=== PATIENT | female | born 1970 | race Caucasian/White ===

== ENCOUNTER 2017-06-28 19:45 | Emergency (ER) | payer BC, OTHER ==
[~2017-06-28] VITALS: Ht 154.9 cm; Wt 84.8 kg
[~2017-06-28 19:45] MED LIST: BACTRIM DS 8001 TA1 PO; BUPROPION HYDR150 M1 PO; BUPROPION HYDR150 M4 PO; CELEXA20 MG PO; CLARITIN10 MG PO; HYDR12.5C PO; HYDROXYZINE PAM50 MG PO; PERCOCET 325 MG1 TA2 PO; PROPRANOLOL ER80 MG PO; PYRIDIUM200 MG PO; VISTARIL25 M1 PO; VITAMIN D50000 IU PO; WELLBUTRIN100 MG PO
[2017-06-28] MEDS ORDERED: LAMICTAL100 MG PO (19:59)
[2017-06-28] MEDS ORDERED: HYDR25T PO (20:00)
[2017-06-28] MEDS ORDERED: TIROSINT150 MCG PO (20:01)
[2017-06-28] MEDS ORDERED: VITAMIN D50000 UNIT PO (20:01)
[2017-06-28] MEDS ORDERED: VITAMIN B121000 MC1 PO (20:01)
[2017-06-28] MEDS ORDERED: MTX SUPPORT TA1 EACH PO (20:02)
== END 2017-06-28 21:31 | disposition home or self-care (01) ==
LOC: ED 19:45
DX: M72.2 Plantar fascial fibromatosis (principal); R03.0 Elevated blood-pressure reading, without diagnosis of hypertension; Z88.6 Allergy status to analgesic agent; Z91.040 Latex allergy status

== ENCOUNTER 2017-07-17 17:59 | Inpatient (IN) | payer BC, OTHER ==
[~2017-07-17] VITALS: Ht 154.9 cm; Wt 101.7 kg
--- NOTE | ~2017-07-17 | CON ---
[place], [place] REPORT OF CONSULTATION NAME: RAMEZ CHAUDHARI UNIT #: [id number] ROOM: 426 DOCTOR: JOSHUA MEADOWS MD BIRTHDATE: [birth year] DOS: 07/18/2017 CHIEF COMPLAINT: Chest pain. HISTORY OF PRESENT ILLNESS: The patient is a 47-year-old woman who has no previous history of coronary disease. She does have a history of hypertension. She states that around the end of 2013, she was diagnosed as having thyroid cancer. She was subsequently found to have non-Hodgkin's lymphoma. None of those records are available to me, but she states that she received R-CHOP from a corporate travel manager in [place]. She stated that while she was on that therapy, she had constant chest pain. She also states that she had radiation therapy to her chest as part of the treatment. To her knowledge, the cancer is still active and she is receiving oral chemotherapy. The patient states that she has had intermittent chest pain for a while. She was scheduled to see a certified dialysis technician in [place]; however, her appointment is not yet on until next week. Last night, she had more mid chest pain with radiation to the jaw and arm. She also had some shortness of breath and sweating. She stated that the pain got worse with exertion and there was nothing that she could do to make the pain better. She became frightened and came to the emergency room for further assessment. Thus far since she has been in the hospital, her electrocardiogram shows no acute changes and her cardiac biomarkers have been normal. PAST MEDICAL HISTORY: Includes 1. Thyroid cancer, status post thyroidectomy, on thyroid replacement. 2. Non-Hodgkin's lymphoma status not known to me. 3. History of radiation therapy and R-CHOP therapy for non-Hodgkin's lymphoma about 2 years ago. 4. Hypertension. MEDICATIONS: Prior to admission, vitamin D 50,000 units weekly, vitamin B12 1000 mcg daily, hydrochlorothiazide 25 mg daily, Lamictal 100 mg daily and levothyroxine 175 mcg daily. ALLERGIES: The patient lists allergies to CODEINE and LATEX. FAMILY HISTORY: The patient's father had a heart attack at age 48 and has since . Her mother has atrial fibrillation and a pacemaker. She also has a history of hypertension. REVIEW OF SYSTEMS: The patient denies diplopia or loss of vision. She denies fevers or recent weight change. She does admit to fatigue. She denies nausea or vomiting. She denies fevers or chills. She has had some sweats with the chest discomfort. She did have the chest pain as noted above. She does have some shortness of breath with exertion. She denies nausea or vomiting. She denies change in bowel or bladder habits. She denies blood in her urine or bowels. She denies any peripheral edema or history of DVT. The remainder of the review of systems is negative except as noted above. [place], [place] REPORT OF CONSULTATION NAME: RAMEZ CHAUDHARI UNIT #: [id number] ROOM: 426 DOCTOR: JOSHUA MEADOWS MD BIRTHDATE: [birth year] SOCIAL HISTORY: The patient has been a smoker in the past, but not recently. She denies alcohol or illicit drug use. PHYSICAL EXAMINATION: GENERAL: The patient is an overweight white female who is awake, alert and oriented. VITAL SIGNS: Pulse is 85 and regular, blood pressure is 110/74, she is afebrile. She weighs 101.7 kilograms with a body mass index of 42.4. HEENT: Normocephalic, atraumatic. Extraocular muscles are intact. Sclerae are clear. Pupils are equal, round and reactive to light. Oral mucosa is moist. Tongue is midline. NECK: Supple. She has no jugular distention. Carotids are full without bruits. She has a well-healed thyroidectomy scar and no neck masses are present. RESPIRATORY: Respirations are unlabored. Her chest is clear to auscultation and percussion. She has no presacral edema or chest wall tenderness. CARDIOVASCULAR: Her heart has a regular rhythm with a soft S4 gallop, but no S3 or murmur. The PMI is not displaced. She has no precordial heave, lift or thrill. I could not reproduce her pain by palpation of her chest, although she does have some tenderness along the rib margins. ABDOMEN: Obese, but otherwise benign, without masses, organomegaly, bruits or tenderness or rebound. EXTREMITIES: Showed no clubbing, cyanosis or edema. There were no palpable cords. There was no Homans sign. Pulses were diminished, but palpable in the feet. She had no hot or swollen joints and no skin rashes. LABORATORY DATA: Hemoglobin is 12.7 with hematocrit 37.5. There is 6500 white cells and 235,000 platelets. Sodium is 141, potassium 3.6, BUN 11, creatinine 0.77. Serial troponin levels have been normal. TSH is low at 0.255. IMPRESSION: 1. Atypical chest pain. The patient shows no signs of an acute myocardial infarction or EKG changes to suggest unstable angina. 2. History of thyroid cancer, status post thyroidectomy. 3. Iatrogenic hypothyroidism, on replacement. 4. History of non-Hodgkin's lymphoma, status of her disease is not currently known to me. 5. History of radiation therapy and chemotherapy for non-Hodgkin's lymphoma. PLAN: The patient will undergo an exercise myocardial perfusion study and echocardiogram today. Further recommendations depend upon the results of these tests. Other causes for chest pain such as esophagitis, esophageal stricture, gastritis, etc. should be considered if her cardiac workup is negative. [facility] and I thank the hospitalist physicians for asking our advice regarding her care. ADDENDUM. [place], [place] REPORT OF CONSULTATION NAME: RAMEZ CHAUDHARI UNIT #: [id number] ROOM: 426 DOCTOR: JOSHUA MEADOWS MD BIRTHDATE: [birth year] I had the opportunity to interview her further. She notes that she has been told that a barium swallow examination did show an abnormality of her esophagus. She specifically reported esophageal polyps. Endoscopy was suggested, but never completed. Also, upon further questioning, she states that she did not have radiation therapy for the non-Hodgkin's lymphoma, but did have radioactive iodine as a diagnostic test prior to her thyroidectomy. The patient's exercise stress test is pending. Further recommendations depend upon the results of the stress test. JOSHUA MEADOWS MD CM:CONSTR:REPORT OF CONSULTATION [id number] 07/19/17 2343 interface
[~2017-07-17 17:59] MED LIST changes: +HYDR25T PO; +LAMICTAL100 MG PO; +MTX SUPPORT TA1 EACH PO; +TIROSINT150 MCG PO; +VITAMIN B121000 MC1 PO; +VITAMIN D50000 UNIT PO
[2017-07-17 18:11] VITALS: BP 129/90
[2017-07-17 18:20] LABS: BASO # 0.1 10*3/uL (0.0-0.1); BASO % 0.6 % (0.0-1.0); EOS # 0.2 10*3/uL (0.0-0.4); HEMATOCRIT 40.8 % (37.0-47.0); HEMOGLOBIN 13.7 g/dl (12.0-16.0); LYMPH # 2.3 10*3/uL (1.3-4.4); LYMPH % 27.4 % (27.0-41.0); MEAN CELL VOLUME 87.9 fl (81.0-99.0); MEAN CORPUSCULAR HGB 29.5 pg (27.0-31.0); MEAN CORPUSCULAR HGB CONC 33.6 g/dl (33.0-37.0); MEAN PLATELET VOLUME 10.2 fl (9.6-12.3); MONO # 0.4 10*3/uL (0.1-1.0); NEUT # 5.5 10*3/uL (2.3-7.9); NEUT % 64.6 % (47.0-73.0); PLATELET COUNT AUTOMATED 283 10*3/uL (130-400); RED BLOOD COUNT 4.64 10*6/uL (4.10-5.10); WHITE BLOOD COUNT 8.4 10*3/uL (4.8-10.8)
[2017-07-17 18:31] LABS: ACT PARTIAL THROMBO TIME 27.9 SECONDS (20.8-31.5); INTERNATIONAL NORM RATIO 1.1 (2.0-3.5)
[2017-07-17 18:36] LABS: ALBUMIN 3.9 gm/dl (3.1-4.5); ALKALINE PHOSPHATASE 84 U/L (45-117); BUN 10 mg/dl (7-24); CHLORIDE 106 mmol/L (98-107); CREATININE 0.79 mg/dL (0.55-1.02); MAGNESIUM 2.1 mg/dL (1.5-2.1); POTASSIUM 3.4 mmol/L (3.5-5.1); SGOT/AST 19 IU/L (3-35); SGPT/ALT 19 U/L (12-78); SODIUM 138 mmol/L (136-145); TOTAL PROTEIN 7.7 gm/dL (6.4-8.2)
[2017-07-17 18:37] LABS: TROPONIN I < 0.015 ng/ml (<0.045)
--- NOTE | 2017-07-17 19:02 | NUR ---
REPORT RECIEVED FROM RICARDO RN, PATIENT IN BED RESTING DENIES ANY CHEST PAIN OR SHORTNESS OF BREATH AT PRESENT TIME, NO SIGNS OF DISTRESS, MONITOR NSR
[2017-07-17 20:35] VITALS: BP 144/95
[2017-07-17 21:00] VITALS: BP 144/95
[2017-07-18 02:30] LABS: BASO % 0.6 % (0.0-1.0); EOS # 0.2 10*3/uL (0.0-0.4); EOS % 2.8 % (1.0-4.0); HEMATOCRIT 37.5 % (37.0-47.0); HEMOGLOBIN 12.7 g/dl (12.0-16.0); LYMPH % 30.3 % (27.0-41.0); MEAN CELL VOLUME 88.9 fl (81.0-99.0); MEAN CORPUSCULAR HGB 30.1 pg (27.0-31.0); MEAN CORPUSCULAR HGB CONC 33.9 g/dl (33.0-37.0); MEAN PLATELET VOLUME 9.7 fl (9.6-12.3); MONO # 0.4 10*3/uL (0.1-1.0); MONO % 6.8 % (3.0-9.0); NEUT # 3.8 10*3/uL (2.3-7.9); NEUT % 58.9 % (47.0-73.0); PLATELET COUNT AUTOMATED 235 10*3/uL (130-400); RED BLOOD COUNT 4.22 10*6/uL (4.10-5.10); RED CELL DISTRI WIDTH 13.2 % (0-14.5); WHITE BLOOD COUNT 6.5 10*3/uL (4.8-10.8)
[2017-07-18 02:46] LABS: ALBUMIN 3.3 gm/dl (3.1-4.5); ALKALINE PHOSPHATASE 71 U/L (45-117); BUN 11 mg/dl (7-24); CHLORIDE 108 mmol/L (98-107); CREATININE 0.77 mg/dL (0.55-1.02); MAGNESIUM 2.1 mg/dL (1.5-2.1); PHOSPHOROUS 4.3 mg/dL (2.5-4.9); POTASSIUM 3.6 mmol/L (3.5-5.1); SGOT/AST 14 IU/L (3-35); SGPT/ALT 16 U/L (12-78); SODIUM 141 mmol/L (136-145); TOTAL PROTEIN 6.5 gm/dL (6.4-8.2)
[2017-07-18 02:52] LABS: THYROID STIM HORMONE (HS) 0.255 uIU/ml (0.358-4.75)
[2017-07-18 08:00] VITALS: BP 110/74
--- NOTE | 2017-07-18 08:14 | NUR ---
Awake and alert. I spoke w/ Marly in [facility]. Stated they would be picking pt. up at around 0830. Pt. and family aware.
--- NOTE | 2017-07-18 08:24 | NUR ---
Lab called re: duplicate troponins. dr. Herbert was notified and will address concern.
--- NOTE | 2017-07-18 09:00 | NUR ---
Insulation Nozzleman in to talk to patient. Patient states lives at home with family. There are few steps in the home. Physician: jillian Pharmacy: [facility] Home health services: none Patient's level of ADLs: INDEPENDENT Patient has working utilities: all working DME: none Follow-up physician's appointment after d/c: will be made by hospitalist nurse director upon discharge Does patient want to access PORTAL?: no Discharge plan discussed with patient, patient states she will be going home when able and denies any home needs. MIKEY ARNOLD
--- NOTE | 2017-07-18 10:12 | NUR ---
Currently in [facility] for stress test.
--- NOTE | 2017-07-18 10:20 | NUR ---
INFORMED SIGNED CONSENT OBTAIND FOR CARDIOLITE STRESS TEST WITH DR MEADOWS RESTING EKG NSR HR 70 BP 126/78 IN SUPINE POSITION, STANDING HR 87 BP 122/82. PT COMPLETED 4:52 OF A MARIA EDL ROSARIO PROTOCOL WITH COMPLETION OF 1:15 OF STAGE II AT 2.5 MPH AND A 12% GRADE. PT REACHED A PEAK HR OF 161 WHICH REPRESENTS 93% OF PREDICTED MAXIMUM AND A PEAK BP OF 144/80. PT C/O CHEST PAIN 5/10 WITH 10 THE WORST WITH EXERCISE. POST TEST RECOVERY IS LESSENED AND AT 3 MINS CHEST PAIN IS A 0/10. NO ARRHYTHMIAS OR ST CHANGES NOTED. LAST RECOVERY HR 116 BP 130/84. PT IN STABLE CONDITION, AWAITING NUCLEAR IMAGES.
[2017-07-18 12:00] VITALS: BP 128/74
--- NOTE | 2017-07-18 12:17 | NUR ---
Returned from stress test.
--- NOTE | 2017-07-18 15:10 | NUR ---
Dr. Dao in spoke w/ pt. re: test results , discharge and follow up. Discharge instruction given . Voiced understanding, discharged to home.
== END 2017-07-18 15:10 | disposition home or self-care (01) | DRG 313 ==
LOC: ED 17:59 → 4E 20:20
PROVIDERS: Emergency Medicine; Family Medicine; ADMIT Internal Medicine
PROC: 4A02XM4 Measurement of Cardiac Total Activity, External Approach (ICD-10-PCS; principal; 2017-07-18)
DX: R07.89 Other chest pain (principal); C85.90 Non-Hodgkin lymphoma, unspecified, unspecified site; I10 Essential (primary) hypertension; E89.0 Postprocedural hypothyroidism; E83.42 Hypomagnesemia; E87.6 Hypokalemia; F17.210 Nicotine dependence, cigarettes, uncomplicated; Z82.49 Family history of ischemic heart disease and other diseases of the circulatory system; Z88.5 Allergy status to narcotic agent; Z91.040 Latex allergy status; Z79.899 Other long term (current) drug therapy

== ENCOUNTER → 2017-08-06 | Outpatient (CLI) | payer BC | END | disposition home or self-care (01) | LOC: MAMMO 07-18 14:30 | DX: Z12.31 Encounter for screening mammogram for malignant neoplasm of breast (principal) ==